=== PATIENT | female | born 1970 | race Native Hawaiian/Other Pacific Islander ===

== ENCOUNTER 2019-09-04 15:19 | Outpatient (CLI) | payer OTHER ==
[2019-09-04 15:49] LABS: PLATELET COUNT 274 K/uL (152-353)
[2019-09-04 16:07] LABS: POTASSIUM 3.7 mmol/L (3.6-5.2)
== END 2019-09-04 20:39 | disposition home or self-care (01) ==
LOC: LAB 15:19
PROVIDERS: Nurse Practitioner Adult Health
DX: Z00.00 Encounter for general adult medical examination without abnormal findings (principal); Z79.899 Other long term (current) drug therapy; R53.81 Other malaise; R53.83 Other fatigue; F41.9 Anxiety disorder, unspecified; R51 Headache; F90.0 Attention-deficit hyperactivity disorder, predominantly inattentive type; F17.200 Nicotine dependence, unspecified, uncomplicated; Z80.3 Family history of malignant neoplasm of breast
CPT/HCPCS: 80053; 80061; 83036; 84439; 84443; 85027

== ENCOUNTER 2020-07-16 13:12 | Outpatient (CLI) | payer OTHER ==
[2020-07-16 13:27] LABS: PLATELET COUNT 283 K/uL (152-353)
[2020-07-16 13:56] LABS: POTASSIUM 3.9 mmol/L (3.6-5.2)
== END 2020-07-16 21:56 | disposition home or self-care (01) ==
LOC: LAB 13:12
PROVIDERS: ATTEND Nurse Practitioner Family
DX: F41.9 Anxiety disorder, unspecified (principal); Z13.0 Encounter for screening for diseases of the blood and blood-forming organs and certain disorders involving the immune mechanism; Z13.220 Encounter for screening for lipoid disorders; Z13.29 Encounter for screening for other suspected endocrine disorder; N95.1 Menopausal and female climacteric states; E11.9 Type 2 diabetes mellitus without complications
CPT/HCPCS: 80053; 80061; 82670; 83001; 83002; 83036; 84403; 84443; 85027